=== PATIENT | female | born 1960 | race American Indian/Alaskan Native ===

== ENCOUNTER 2016-04-27 11:42 | Outpatient (CLI) | payer MEDICARE ==
--- NOTE | 2016-04-27 14:05 | XRay Report ---
CHEST 2 VIEWS INDICATION: Shortness of breath. COMPARISON: None similar. FINDINGS: PA and lateral chest radiographs demonstrate normal cardiomediastinal silhouette. Slightly prominent lung markings toward the bases. No focal consolidation or pleural effusions however. Left-sided pacemaker with dual-chamber leads. Some extrinsic clothing artifacts. Thoracic spondylosis and possible osteopenia. CONCLUSION: No definite acute chest process, as described. Comparison with prior chest imaging would also be helpful, if available. Thank you for the opportunity to participate in this patient's care.
== END 2016-04-27 11:43 | disposition home or self-care (01) ==
LOC: SPVIMAG 11:42
PROVIDERS: ATTEND Internal Medicine Hematology & Oncology
DX: R05 Cough (principal); M47.894 Other spondylosis, thoracic region
CPT/HCPCS: 71020

== ENCOUNTER 2016-11-24 10:57 | Outpatient (CLI) | payer MEDICARE ==
--- NOTE | 2016-11-25 14:18 | Mammography Report ---
BILATERAL MAMMOGRAM with CAD: HISTORY: Cancer screening. Comparison study is dated October 07, 2015. FINDINGS: The breast tissue is heterogeneously dense, which could obscure detection of small masses (approximately 50%-75% glandular). No mass, distortion, suspicious calcification, or skin change is seen. IMPRESSION: Negative mammogram. There is no mammographic evidence of malignancy. RECOMMENDATION: Follow-up per ACS guidelines. BI-RADS CATEGORY: 1 = Negative ACR BI-RADS MAMMOGRAPHIC CODES: 0 = Needs additional imaging evaluation; 1 = Negative; 2 = Benign; 3 = Probably benign; 4 = Suspicious; 5 = Malignant; 6 = Known biopsy-proven malignancy COMMENT: 1. Dense breast tissue, i.e., adenosis, fibrocystic changes, etc., may obscure an underlying neoplasm. 2. Approximately 10% of cancers are not detected with mammography. 3. A negative mammography report should not delay biopsy if a clinically suspicious mass is present. COMMENT: Patient follow-up letters are generated in [employer].
== END 2016-11-24 10:58 | disposition home or self-care (01) ==
LOC: SPVWC 10:57
PROVIDERS: ATTEND Obstetrics & Gynecology
DX: Z12.31 Encounter for screening mammogram for malignant neoplasm of breast (principal)
CPT/HCPCS: 77067; G0202